=== PATIENT | female | born 2000 ===

== ENCOUNTER 2021-06-28 08:29 | Outpatient (CLI) | payer OTHER ==
[2021-06-29 11:52] LABS: SARS-CoV-2 PCR by NAA Not Detected (NotDetected)
== END 2021-06-28 08:30 | disposition home or self-care (01) ==
LOC: CSHLAB 08:29
PROVIDERS: ATTEND Advanced Practice Midwife
DX: Z20.822 Contact with and (suspected) exposure to COVID-19 (principal)
CPT/HCPCS: U0003; U0005

== ENCOUNTER 2021-07-03 19:00 | Inpatient (IN) | payer OTHER ==
[2021-07-04 01:21] VITALS: BMI 31.4
[2021-07-04] MEDS ORDERED: Diphenoxylate HCl/Atropine Tablet PO PRN (01:48)
[2021-07-04] MEDS ORDERED: Ibuprofen 800 MG TAB PO PRN (01:48)
[2021-07-04] MEDS ORDERED: Carboprost 250 MCG/ML AMP IM PRN (01:48)
[2021-07-04] MEDS ORDERED: Promethazine HCl 25 MG/ML VIAL IM PRN ×2 (01:48→05:21)
[2021-07-04] MEDS ORDERED: HYDROcodone/Acetaminophen 5/325 mg Tablet PO PRN ×4 (01:48→18:23)
[2021-07-04] MEDS ORDERED: hydrALAZINE 20 MG/ML VIAL SLOW IVP PRN ×2 (01:48→18:23)
[2021-07-04] MEDS ORDERED: Methylergonovine 0.2 MG/ML VIAL IM PRN ×2 (01:48→18:23)
[2021-07-04] MEDS ORDERED: Ondansetron PF 4 MG/2 ML Vial IVP PRN ×3 (01:48→18:23)
[2021-07-04] MEDS ORDERED: NS w/ Oxytocin 30 units 500 ML IV SCH ×3 (01:48→18:23)
[2021-07-04] MEDS ORDERED: Zolpidem Tartrate 5 MG TAB PO PRN (01:48)
[2021-07-04] MEDS ORDERED: Butorphanol Tartrate 1 MG/ML VIAL SLOW IVP PRN (01:48)
[2021-07-04] MEDS ORDERED: Lidocaine 1% (PF) 30 ML VIAL SC PRN (01:48)
[2021-07-04] MEDS ORDERED: Misoprostol 200 MCG TAB PR PRN (01:48)
[2021-07-04] MEDS ORDERED: Acetaminophen 500 MG TAB PO PRN (01:48)
[2021-07-04] MEDS ORDERED: NS w/ Oxytocin 30 units 500 ML ONE (01:57)
[2021-07-04 02:13] LABS: Hemoglobin 12.5 g/dL (12.0-15.5); Mean Corpuscular HGB CONC 33.8 g/dL (32.0-36.0); Mean Corpuscular Volume 94.6 fl (81.6-98.3); Platelet Count 283 10x3/uL (150-450); RBC Distribution Width 12.2 % (11.5-14.5); Red Blood Cell (RBC) Count 3.91 10x6/uL (3.90-5.03); White Blood Cell (WBC) Count 12.3 10x3/uL (3.5-10.5)
[2021-07-04 02:44] LABS: Hep B Surf Ag Non-Reactive S/CO (NonReactive); Syphilis Antibody Nonreactive (Nonreactive); Syphilis Antibody Index 0.05 S/CO (<1.00 Non-Reactive)
[2021-07-04 02:48] LABS: HBSAg Index 0.13 S/CO (0-0.99)
[2021-07-04] MEDS ORDERED: FENTANYL EPIDURAL SCH (03:45)
[2021-07-04] MEDS ORDERED: BUP EPIDURAL SCH (03:45)
[2021-07-04] MEDS ORDERED: CADD EPIDURAL SCH (03:45)
[2021-07-04] MEDS ORDERED: diphenhydrAMINE 50 MG/ML VIAL IVP PRN (05:21)
[2021-07-04] MEDS ORDERED: Acetaminophen 325 MG TAB PO PRN (05:21)
[2021-07-04] MEDS ORDERED: Lactated Ringer's 500 ML IV PRN (05:21)
[2021-07-04] MEDS ORDERED: Hydrocerin (Eucerin) Cream 120 gm Jar TOP PRN (05:21)
[2021-07-04] MEDS ORDERED: Naloxone HCl 0.4 mg/ml Vial IVP PRN ×2 (05:21)
[2021-07-04] MEDS ORDERED: ePHEDrine Sulfate 50 MG/10 ML VIAL SLOW IVP PRN (05:21)
[2021-07-04] MEDS ORDERED: Fentanyl 2 mcg/Bupivacaine 0.1% Cassette 100 ML EPIDURAL SCH (05:30)
[2021-07-04] MEDS ORDERED: Communication Order-Pharmacy FS SCH (05:30)
[2021-07-04] MEDS: Misoprostol 100 MCG TAB VAG SCH ×2 (07:50→14:37)
[2021-07-04] MEDS: Lactated Ringer's 1,000 ML IV SCH ×2 (07:50→14:37)
[2021-07-04] MEDS ORDERED: Bupivacaine 0.25% HCL 30 ML VIAL ONE (08:00)
[2021-07-04] MEDS ORDERED: Benzocaine-Menthol 82.5 ML CAN TOP PRN (18:23)
[2021-07-04] MEDS ORDERED: Milk Of Magnesia 30 ML UDCUP PO PRN (18:23)
[2021-07-04] MEDS ORDERED: Misoprostol 200 MCG TAB VAG PRN (18:23)
[2021-07-04] MEDS ORDERED: Bisacodyl 10 MG SUPP PR PRN (18:23)
[2021-07-04] MEDS: Ferrous Sulfate 325 MG TAB PO SCH (19:20)
[2021-07-04] MEDS: Ibuprofen 800 MG TAB PO SCH (21:15)
[2021-07-04] MEDS: Docusate 100 MG CAP PO SCH (21:15)
[2021-07-04] MEDS ORDERED: Lanolin Ointment 7 GM TUBE TOP PRN (22:00)
[2021-07-05] MEDS: Ibuprofen 800 MG TAB PO SCH ×3 (05:09→21:26)
[2021-07-05] MEDS: Lactated Ringer's 1,000 ML IV SCH (07:21)
[2021-07-05] MEDS: Misoprostol 100 MCG TAB VAG SCH (07:21)
[2021-07-05] MEDS: Ferrous Sulfate 325 MG TAB PO SCH ×2 (07:32→15:57)
[2021-07-05] MEDS: Docusate 100 MG CAP PO SCH ×2 (09:43→21:26)
[2021-07-05] MEDS ORDERED: Boostrix 0.5 ML (Tdap) VIAL IM ONE (18:23)
[2021-07-06] MEDS: Ibuprofen 800 MG TAB PO SCH ×2 (05:01→13:50)
[2021-07-06 07:44] VITALS: BP 118/64; TEMP 97.8
[2021-07-06] MEDS: Ferrous Sulfate 325 MG TAB PO SCH (08:40)
[2021-07-06] MEDS: Docusate 100 MG CAP PO SCH (08:41)
== END 2021-07-06 14:05 | disposition home or self-care (01) | DRG 807 ==
LOC: CSHLD 07-04 00:34 → CSHPP 07-04 19:49
PROVIDERS: ADMIT Obstetrics & Gynecology; ATTEND Obstetrics & Gynecology
PROC: 10E0XZZ Delivery of Products of Conception, External Approach (ICD-10-PCS; principal; 2021-07-04)
PROC: 10907ZC Drainage of Amniotic Fluid, Therapeutic from Products of Conception, Via Natural or Artificial Opening (ICD-10-PCS; 2021-07-04)
PROC: 3E0P7VZ Introduction of Hormone into Female Reproductive, Via Natural or Artificial Opening (ICD-10-PCS; 2021-07-04)
PROC: 3E033VJ Introduction of Other Hormone into Peripheral Vein, Percutaneous Approach (ICD-10-PCS; 2021-07-04)
PROC: 0HQ9XZZ Repair Perineum Skin, External Approach (ICD-10-PCS; 2021-07-04)
DX: O99.344 Other mental disorders complicating childbirth (principal); Z37.0 Single live birth; Z20.822 Contact with and (suspected) exposure to COVID-19; Z3A.39 39 weeks gestation of pregnancy; F32.A Depression, unspecified; O70.0 First degree perineal laceration during delivery; O76 Abnormality in fetal heart rate and rhythm complicating labor and delivery
CPT/HCPCS: 36415; 51702; 85027; 86780; 86850; 86900; 86901; 87340; J2210; J2590; S0020